=== PATIENT | male | born 1985 | race Caucasian/White ===

== ENCOUNTER 2019-02-26 15:15 | Emergency (ER) | payer OTHER ==
[2019-02-26] MEDS ORDERED: HYDROCODONE/ACETAMINOPHEN 5-325 MG TABLET PO ONE (16:41)
[2019-02-26] MEDS ORDERED: DIPH/PERTUSS(ACELL)/TETANUS VAC/PF 0.5 ML SYR (>=10YO) IM ONE (16:41)
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
[2019-02-26 18:00] VITALS: BP 136/86
== END 2019-02-26 18:01 | disposition home or self-care (01) ==
LOC: ER 15:15
DX: S73.102A Unspecified sprain of left hip, initial encounter (principal); S93.501A Unspecified sprain of right great toe, initial encounter; S40.812A Abrasion of left upper arm, initial encounter; S09.90XA Unspecified injury of head, initial encounter; S00.83XA Contusion of other part of head, initial encounter; S00.81XA Abrasion of other part of head, initial encounter; M79.602 Pain in left arm; M25.552 Pain in left hip; M79.674 Pain in right toe(s); V87.7XXA Person injured in collision between other specified motor vehicles (traffic), initial encounter; F17.200 Nicotine dependence, unspecified, uncomplicated
CPT/HCPCS: 70450; 70486; 72125; 90471; 90715; 99284